=== PATIENT | male | born 1945 | race Caucasian/White ===

== ENCOUNTER 2020-02-24 18:10 | Observation (INO) ==
[2020-02-24 19:53] LABS: Hematocrit 43.4 % (37.5-50.1); Hemoglobin 15.1 g/dL (12.9-16.9); Mean Corpuscular HGB Conc 34.8 g/dL (31.6-35.5); Mean Corpuscular Hemoglobin 33.1 pg (28.0-33.3); Mean Corpuscular Volume 95.2 fL (83.0-100.0); Mean Platelet Volume 10.8 fL (9.4-12.4); Platelet Count 223 K/mcL (140-400); Red Blood Count 4.56 M/mcL (4.19-5.50); Red Cell Distribution Width 13.7 % (11.5-14.5); White Blood Count 10.8 K/mcL (4.3-11.1)
[2020-02-24 19:59] LABS: Calcium 10.7 mg/dL (8.6-10.3)
[2020-02-24 20:09] LABS: Troponin I 0.06 ng/mL (< 0.04)
[2020-02-24 21:00] LABS: Bilirubin,Urine Negative (Negative); Blood,Urine Negative (Negative); Clarity,Urine Clear (Clear); Color,Urine Light-Yellow (Yellow); Glucose,Urine (UA) Normal (Normal); Ketones,Urine Negative (Negative); Leukocyte Esterase,Urine Negative (Negative); Nitrite,Urine Negative (Negative); PH,Urine 6.5 pH Units (5.0-8.0); Protein,Urine Negative (Neg-Trace); Specific Gravity,Urine 1.012 (1.010-1.025); Urobilinogen,Urine Normal (Normal)
[2020-02-24] MEDS ORDERED: Potassium Chloride Elixir 20 MEQ/15 ML UDC PO ONE (21:33)
[2020-02-24] MEDS ORDERED: Aspirin 325 MG TABLET PO ONE (21:35)
[2020-02-25] MEDS ORDERED: Naloxone 0.4 MG/ML INJ IVP PRN (01:13)
[2020-02-25] MEDS ORDERED: 0.9 % Sodium Chloride 1,000 ML IVC SCH (01:15)
[2020-02-25] MEDS ORDERED: *HR* Dextrose 50 % in Water (Vial) 50 ML VIAL IVP PRN (04:11)
[2020-02-25] MEDS ORDERED: Dextrose Gel 15 GM/37.5 ML TUBE PO PRN ×2 (04:11)
[2020-02-25] MEDS ORDERED: D5% in Water 1,000 ML IVC PRN (04:11)
[2020-02-25] MEDS ORDERED: hydrOXYzine pamoate 25 MG CAPSULE PO PRN (04:13)
[2020-02-25] MEDS ORDERED: Perflutren Lipid Microsphere 1.3 ML in 0.9 % Sodium Chloride 8.7 ML IVP PRN (04:39)
[2020-02-25 05:19] LABS: Basophils % 0.3 %; Eosinophils # 0.3 K/mcL (0.0-0.6); Eosinophils % 2.8 %; Hematocrit 41.1 % (37.5-50.1); Hemoglobin 14.1 g/dL (12.9-16.9); Immature Granulocytes % 0.3 % (0-4); Lymphocytes # 2.1 K/mcL (0.6-4.6); Lymphocytes % 21.4 %; Mean Corpuscular HGB Conc 34.3 g/dL (31.6-35.5); Mean Corpuscular Hemoglobin 32.6 pg (28.0-33.3); Mean Corpuscular Volume 94.9 fL (83.0-100.0); Monocytes # 0.8 K/mcL (0.0-1.3); Monocytes % 8.3 %; Neutrophils # 6.7 K/mcL (1.6-8.9); Platelet Count 218 K/mcL (140-400); Red Blood Count 4.33 M/mcL (4.19-5.50); Red Cell Distribution Width 13.6 % (11.5-14.5); Segmented Neutrophils % 66.9 %
[2020-02-25 05:31] LABS: Protein/Creatinine Ratio,Urine 0.22 mg/mg (0.00-0.20)
[2020-02-25 06:00] LABS: Troponin I 0.06 ng/mL (< 0.04)
[2020-02-25 06:08] LABS: Albumin 3.3 g/dL (3.5-5.7); Albumin/Globulin Ratio 1.4 (1.1-2.2); Bilirubin,Total 0.8 mg/dL (0.3-1.0); Calcium 10.5 mg/dL (8.6-10.3); Globulin 2.3 g/dL (2.4-3.5); Magnesium 2.1 mg/dL (1.6-2.6); Potassium 2.8 mEq/L (3.5-5.1); Total Protein 5.6 g/dL (6.4-8.9)
[2020-02-25] MEDS: Insulin LISPRO 300 UNITS/3 ML VIAL SQ SCH ×3 (06:44→17:14)
[2020-02-25 08:19] LABS: Estimated Average Glucose 169 mg/dl
[2020-02-25] MEDS ORDERED: Potassium Chloride 40 MEQ, Lidocaine 1% 2 ML in 0.9 % Sodium Chloride 500 ML IVPB ONE (08:35)
[2020-02-25] MEDS ORDERED: amLODIPine 5 MG TABLET PO SCH (09:00)
[2020-02-25] MEDS: Finasteride 5 MG TABLET PO SCH (15:21)
[2020-02-25] MEDS: predniSONE 10 MG TABLET PO SCH (15:21)
[2020-02-25] MEDS: CycloSPORINE, Mod (Neoral) 25 MG CAPSULE PO SCH ×2 (15:21→21:07)
[2020-02-25] MEDS: *HR* Heparin 5,000 UNIT/ML VIAL SQ SCH ×2 (15:21→21:08)
[2020-02-25 16:04] LABS: Potassium 4.1 mEq/L (3.5-5.1)
[2020-02-25 16:05] LABS: Calcium 9.3 mg/dL (8.6-10.3)
[2020-02-25] MEDS ORDERED: *HR* HYDROcodone/Acet 5/325 mg TABLET PO ONE (20:27)
[2020-02-25] MEDS ORDERED: Mirtazapine 15 MG TABLET PO SCH (21:00)
[2020-02-25] MEDS ORDERED: Lithium Carbonate ER 450 MG TABLET.ER PO SCH (21:00)
[2020-02-25] MEDS ORDERED: Insulin LISPRO 300 UNITS/3 ML VIAL SQ SCH (21:00)
[2020-02-26 03:28] LABS: Calcium 10.1 mg/dL (8.6-10.3); Magnesium 2.3 mg/dL (1.6-2.6); Potassium 4.4 mEq/L (3.5-5.1)
[2020-02-26] MEDS: *HR* Heparin 5,000 UNIT/ML VIAL SQ SCH (05:37)
[2020-02-26 06:49] VITALS: BP 157/84
[2020-02-26] MEDS: Insulin LISPRO 300 UNITS/3 ML VIAL SQ SCH (07:06)
[2020-02-26] MEDS: CycloSPORINE, Mod (Neoral) 25 MG CAPSULE PO SCH (07:06)
[2020-02-26] MEDS: Finasteride 5 MG TABLET PO SCH (07:07)
[2020-02-26] MEDS: predniSONE 10 MG TABLET PO SCH (07:07)
[2020-02-26] MEDS ORDERED: amLODIPine 5 MG TABLET PO SCH (09:00)
== END 2020-02-26 11:48 | disposition home or self-care (01) ==
LOC: 2ANU 18:10 → EMEROOARM 18:10 → 2ANU 02-25 02:11
PROVIDERS: ADMIT Internal Medicine; ATTEND Internal Medicine